=== PATIENT | female | born 1960 | race Caucasian/White ===

== ENCOUNTER → 2019-03-28 | Outpatient (CLI) | payer OTHER | END | disposition home or self-care (01) | LOC: LAB 15:47 | PROVIDERS: ATTEND Internal Medicine | DX: R07.9 Chest pain, unspecified (principal); R06.02 Shortness of breath; I50.9 Heart failure, unspecified | CPT/HCPCS: 80048 ==

== ENCOUNTER → 2019-04-14 | Outpatient (CLI) | payer OTHER ==
[~2019-04-14] MED LIST: ATENOLOL 25 MG TAB PO STA; IOHEXOL 100 ML ONE; METOPROLOL 5 MG INJ ONE; NITROGLYCERIN AEROSOL (4.9 GM) ONE; SOD CHLORIDE 0.9% 100 ML ONE
[2019-04-14 10:34] VITALS: BP 122/85; PULSE 83; RESP 21
== END | disposition home or self-care (01) ==
LOC: C/S 09:57 → EDSEX 09:57
PROVIDERS: ATTEND Internal Medicine
DX: I50.9 Heart failure, unspecified (principal); R06.02 Shortness of breath
CPT/HCPCS: 75571; 75574; Q9967; Z7610